=== PATIENT | male | born 1965 | race Caucasian/White ===

== ENCOUNTER 2017-11-07 10:22 | Emergency (ER) | payer SELFPAY ==
[2017-11-07 09:50] VITALS: BP 114/89; PULSE 92; RESP 24; TEMP 36.3; O2SAT 91; BMI 34.8
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
[2017-11-07 10:45] VITALS: BP 119/86; PULSE 90; RESP 22; TEMP 36.6; O2SAT 93
== END 2017-11-07 10:45 | disposition home or self-care (01) ==
PROVIDERS: Emergency Provider Emergency Medicine; Family Provider Family Medicine; PCP Family Medicine
DX: T40.1X2A Poisoning by heroin, intentional self-harm, initial encounter (principal)
CPT/HCPCS: 96365; 96375; 99281; J2405

== ENCOUNTER 2020-07-16 12:18 | Emergency (ER) | payer SELFPAY ==
[2020-07-16 12:25] VITALS: BP 163/105; PULSE 71; RESP 18; TEMP 37.2; O2SAT 98; BMI 26.4
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
--- NOTE | 2020-07-16 12:34 | PC.NURSE ---
pt to CT
[2020-07-16 13:15] VITALS: BP 150/80; PULSE 70; RESP 18; TEMP 37.2; O2SAT 99
== END 2020-07-16 13:16 | disposition home or self-care (01) ==
PROVIDERS: Emergency Provider Physician Assistant; PCP Family Medicine
DX: S01.81XA Laceration without foreign body of other part of head, initial encounter (principal); L08.9 Local infection of the skin and subcutaneous tissue, unspecified; V49.9XXA Car occupant (driver) (passenger) injured in unspecified traffic accident, initial encounter; S20.219A Contusion of unspecified front wall of thorax, initial encounter; Z88.5 Allergy status to narcotic agent; F17.210 Nicotine dependence, cigarettes, uncomplicated
CPT/HCPCS: 71250; 99282